=== PATIENT | male | born 1960 | race Caucasian/White ===

== ENCOUNTER 2020-04-04 16:15 | Emergency (ER) | payer BC, OTHER ==
--- NOTE | 2020-04-04 17:46 | CR ---
Right second finger: 4 views centered to the right second finger were obtained. Soft tissue amputation is seen distally. No bony fracture is seen. Small radiopacity is projected within the dorsal soft tissues at the level of the middle phalanx possibly due to very small foreign body measuring about 1.2 mm. Impression: 1. Soft tissue amputation. 2. No acute bony abnormality. 3. Questionable foreign body as noted above. Diagnostic code #3 Study was dictated in MDT
[2020-04-04] MEDS ORDERED: Cephalexin 500 MG Cap PO ONE (18:40)
--- NOTE | 2020-04-04 19:16 | EDM.PDOC ---
ED HPI GENERAL MEDICAL PROBLEM - General Chief Complaint: Laceration Stated Complaint: RT INDEX FINGER INJURY Time Seen by Provider: 04/04/20 17:44 Source of Information: Reports: Patient History Limitations: Reports: No Limitations - History of Present Illness INITIAL COMMENTS - FREE TEXT/NARRATIVE: Patient is a 59-year-old male presenting to the emergency department with a fi ngertip avulsion of his right index finger. States he was at work using a saw when his finger hit the blade. States his last tetanus vaccination was 4 years ago. Right Finger-Index Pain Score (Numeric/FACES): 4 - Related Data Allergies Allergy/AdvReac Type Severity Reaction Status Date / Time acetaminophen [From NyQuil] Allergy Severe Hives Verified 04/04/20 17:02 dextromethorphan Allergy Severe Hives Verified 04/04/20 17:02 [From NyQuil] doxylamine [From NyQuil] Allergy Severe Hives Verified 04/04/20 17:02 pseudoephedrine [From NyQuil] Allergy Severe Hives Verified 04/04/20 17:02 Home Meds: Home Meds Aspirin 1 tab PO DAILY 04/04/20 [History] Cholecalciferol (Vitamin D3) [Vitamin D] 2 tab PO DAILY 04/04/20 [History] Phenytoin Sodium Extended [Dilantin] 100 mg PO BID 04/04/20 [History] Saxagliptin HCl [Onglyza] 5 mg PO DAILY 04/04/20 [History] atorvaSTATin [Lipitor] 10 mg PO DAILY 04/04/20 [History] cephALEXin [Keflex] 500 mg PO Q8H 5 Days #20 cap 04/04/20 [Rx] glipiZIDE [Glucotrol] 20 mg PO DAILY 04/04/20 [History] metFORMIN [Glucophage XR] 1,000 mg PO DAILY 04/04/20 [History] Past Medical History HEENT History: Reports: Impaired Vision Cardiovascular History: Reports: High Cholesterol Respiratory History: Reports: None Genitourinary History: Reports: None Musculoskeletal History: Reports: Fracture Neurological History: Reports: Seizure, Other (See Below) Other Neuro History: Pt states that he "cracked his skull when he was 4-5 years old." Psychiatric History: Reports: PTSD Endocrine/Metabolic History: Reports: Diabetes, Type II Hematologic History: Reports: None Immunologic History: Reports: None Oncologic (Cancer) History: Reports: None Dermatologic History: Reports: None - Infectious Disease History Infectious Disease History: Reports: None - Past Surgical History GI Surgical History: Reports: Cholecystectomy Musculoskeletal Surgical History: Reports: Knee Replacement Social & Family History - Tobacco Use Smoking Status *Q: Never Smoker - Caffeine Use Caffeine Use: Reports: Soda - Recreational Drug Use Recreational Drug Use: No ED ROS GENERAL - Review of Systems Review Of Systems: Comprehensive ROS is negative, except as noted in HPI. ED EXAM, SKIN/RASH Exam: See Below Exam Limited By: No Limitations General Appearance: Alert, WD/WN, No Apparent Distress Respiratory/Chest: No Respiratory Distress, Lungs Clear, Normal Breath Sounds, No Accessory Muscle Use, Chest Non-Tender Cardiovascular: Normal Peripheral Pulses, Regular Rate, Rhythm, No Edema, No Gallop, No JVD, No Murmur, No Rub Extremities: Other (1.5 cm x 0.75 cm avulsion of the lateral tip of the right index finger. A small portion of the distal nailbed is involved. There is no visible or palpable exposed bone. There was no active bleeding at time of exam.) Neurological: Alert, Oriented, CN II-XII Intact, Normal Cognition, Normal Gait, Normal Reflexes, No Motor/Sensory Deficits Psychiatric: Normal Affect, Normal Mood Course - Vital Signs Last Recorded V/S: Last Vital Signs Temp 98.4 F 04/04/20 16:57 Pulse 64 04/04/20 16:57 Resp 16 04/04/20 16:57 BP 156/91 H 04/04/20 16:57 Pulse Ox 95 04/04/20 16:57 - Orders/Labs/Meds Meds: Medications Discontinued Medications Generic Name Dose Route Start Last Admin Trade Name Freq PRN Reason Stop Dose Admin Cephalexin 500 mg 04/04/20 18:40 Keflex PO 04/04/20 18:41 ONETIME ONE - Re-Assessments/Exams Free Text/Narrative Re-Assessment/Exam: 04/04/20 19:12 Patient is a 59-year-old male presenting to the emergency department with an avulsion of the distal aspect of his right index finger. X-ray was completed and show no fracture. On exam, there is no visible or palpable bone. There was no active bleeding at time of exam. Bacitracin was applied over the area and was covered with nonstick gauze, tubular gauze, and Covan. Discussed with patient that healing may take up to 6 weeks. I did put him on Keflex prophylaxis due to the proximity of the injury to the bone. Recommend he follow -up at the [facility] in 1 week for recheck. I will write him off from work through the remainder of the week and then he may return to work. Discussed that is important that the area does not become contaminated. He should keep it covered at all times. Discharge instructions as documented. Departure - Departure Time of Disposition: 19:13 Disposition: Home, Self-Care 01 Condition: Good Clinical Impression: Fingertip avulsion Qualifiers: Encounter type: initial encounter Qualified Code(s): S61.209A - Unspecified open wound of unspecified finger without damage to nail, initial encounter - Discharge Information *PRESCRIPTION DRUG MONITORING PROGRAM REVIEWED*: No *COPY OF PRESCRIPTION DRUG MONITORING REPORT IN PATIENT ESTRELLITA: No Prescriptions: cephALEXin [Keflex] 500 mg PO Q8H 5 Days #20 cap Referrals: Nicole Buitrago MD [Primary Care Provider] - Forms: ED Department Discharge, ED Return to Work/School Form Additional Instructions: You were seen in the emergency department this evening for a partial avulsion of the tip of your index finger on your right hand. X-rays were done and showed no fracture or bony involvement. The soft tissue of your finger is still covering your bone. Injury such as this will heal over time, however it is likely this can take up to 6 weeks for this to completely heal. Recommend that you keep the area covered at all times. You may apply antibiotic ointment. You may wash the area gently with soap and water daily after 48 hours. Watch for signs of infection including increased redness, swelling, or purulent drainage. If these should occur, you should been seen in the clinic or the emergency department. You have been placed on Keflex which is an antibiotic to prevent infection. Take this medication as prescribed. I would recommend that you follow-up at the [facility] in about 1 week to have it rechecked and discuss work restrictions. Return to the ER as needed. Sepsis Event Note (ED) - Evaluation Sepsis Screening Result: No Definite Risk - Focused Exam Vital Signs: Vital Signs Temp Pulse Resp BP Pulse Ox 04/04/20 16:57 98.4 F 64 16 156/91 H 95
== END 2020-04-04 19:30 | disposition home or self-care (01) ==
LOC: JD.ED 16:15
DX: S61.300A Unspecified open wound of right index finger with damage to nail, initial encounter (principal); R56.9 Unspecified convulsions; E78.00 Pure hypercholesterolemia, unspecified; E11.9 Type 2 diabetes mellitus without complications; Z79.82 Long term (current) use of aspirin; Z79.84 Long term (current) use of oral hypoglycemic drugs; Z79.899 Other long term (current) drug therapy; Z88.6 Allergy status to analgesic agent; Z88.8 Allergy status to other drugs, medicaments and biological substances; Z88.1 Allergy status to other antibiotic agents; Y99.0 Civilian activity done for income or pay; W23.0XXA Caught, crushed, jammed, or pinched between moving objects, initial encounter
CPT/HCPCS: 73140; 99283; A9270

== ENCOUNTER 2021-10-25 07:39 | Day surgery (SDC) | payer OTHER ==
[2021-10-25] MEDS: Polymyxin B/Trimethoprim 10 ML Bottle EYERT SCH ×3 (07:30→09:25)
[2021-10-25] MEDS: Brimonidine 0.2% Ophth Soln 5 ML Bottle EYERT SCH ×3 (07:34→09:24)
[~2021-10-25 07:39] MED LIST: Cefuroxime 10 MG/ML SYRINGE EYERT SCH; Lidocaine 1% PF 2 ML SDV INJECT SCH; Pilocarpine 4% Ophth Soln 15 ML Bot EYERT SCH
[2021-10-25] MEDS: Phenylephrine 2.5% Ophth Soln 2 ML Bot EYERT SCH ×5 (07:39→09:08)
[2021-10-25] MEDS: Tropicamide 1% Ophth Soln 15 ML Bottle EYERT SCH ×4 (07:43→08:43)
[2021-10-25] MEDS: Tetracaine HCl/PF 0.5% 4 ML Bottle EYEBOTH SCH ×2 (08:59→09:22)
== END 2021-10-25 09:32 | disposition home or self-care (01) ==
LOC: JD.SDS 07:39
PROVIDERS: ATTEND Ophthalmology
DX: E11.36 Type 2 diabetes mellitus with diabetic cataract (principal); H91.90 Unspecified hearing loss, unspecified ear; E78.00 Pure hypercholesterolemia, unspecified; H54.7 Unspecified visual loss; H25.813 Combined forms of age-related cataract, bilateral; H02.834 Dermatochalasis of left upper eyelid; H16.103 Unspecified superficial keratitis, bilateral; H16.223 Keratoconjunctivitis sicca, not specified as Sjogren's, bilateral; Z88.8 Allergy status to other drugs, medicaments and biological substances; Z79.84 Long term (current) use of oral hypoglycemic drugs; Z79.82 Long term (current) use of aspirin; Z79.899 Other long term (current) drug therapy
CPT/HCPCS: 66984; 82947; C1780; J0697

== ENCOUNTER 2021-12-20 07:32 | Day surgery (SDC) | payer OTHER ==
[2021-12-20] MEDS: Polymyxin B/Trimethoprim 10 ML Bottle EYELF SCH ×3 (07:13→08:28)
[2021-12-20] MEDS: Brimonidine 0.2% Ophth Soln 5 ML Bottle EYELF SCH ×3 (07:17→08:28)
[2021-12-20] MEDS: Phenylephrine 2.5% Ophth Soln 2 ML Bot EYELF SCH ×5 (07:21→08:05)
[2021-12-20] MEDS: Tropicamide 1% Ophth Soln 15 ML Bottle EYELF SCH ×4 (07:25→07:56)
[~2021-12-20 07:32] MED LIST changes: +Cefuroxime 10 MG/ML SYRINGE EYELF SCH; -Cefuroxime 10 MG/ML SYRINGE EYERT SCH; +Pilocarpine 4% Ophth Soln 15 ML Bot EYELF SCH; -Pilocarpine 4% Ophth Soln 15 ML Bot EYERT SCH
[2021-12-20] MEDS: Tetracaine HCl/PF 0.5% 4 ML Bottle EYEBOTH SCH ×2 (07:59→08:15)
== END 2021-12-20 08:36 | disposition home or self-care (01) ==
LOC: JD.SDS 07:32
PROVIDERS: ATTEND Ophthalmology
DX: E11.36 Type 2 diabetes mellitus with diabetic cataract (principal); H25.812 Combined forms of age-related cataract, left eye; H16.223 Keratoconjunctivitis sicca, not specified as Sjogren's, bilateral; H02.831 Dermatochalasis of right upper eyelid; H16.103 Unspecified superficial keratitis, bilateral; H02.834 Dermatochalasis of left upper eyelid; E78.00 Pure hypercholesterolemia, unspecified; H91.90 Unspecified hearing loss, unspecified ear; Z96.1 Presence of intraocular lens; H54.7 Unspecified visual loss; F43.10 Post-traumatic stress disorder, unspecified; Z88.6 Allergy status to analgesic agent; Z88.8 Allergy status to other drugs, medicaments and biological substances; Z79.84 Long term (current) use of oral hypoglycemic drugs; Z79.82 Long term (current) use of aspirin; Z79.899 Other long term (current) drug therapy
CPT/HCPCS: 66984; C1780; J0697